=== PATIENT | male | born 1930 | race Caucasian/White ===

== ENCOUNTER 2016-12-25 07:35 | Day surgery (SDC) | payer OTHER ==
[2016-12-25] MEDS ORDERED: ceFAZolin 2 GM/DEXTROSE 100 ML IV ONE (07:38)
[2016-12-25] MEDS ORDERED: BACITRACIN IRRIGATION/NS 50,000 UNITS/1,000 ML BTL IRR ONE (07:38)
[2016-12-25] MEDS ORDERED: DIAZEPAM 5 MG TAB PO ONE (07:38)
[2016-12-25] MEDS ORDERED: diphenhydrAMINE 25 MG CAP PO ONE (07:38)
[2016-12-25] MEDS ORDERED: NS 1,000 ML IV ONE (07:38)
--- NOTE | 2016-12-25 08:15 | CPEKG ---
Heart Rate: 60 RR Interval: 1000 P-R Interval: 352 QRSD Interval: 152 QT Interval: 500 QTC Interval: 500 P [place]: 15 QRS [place]: -84 T Wave [place]: 82 EKG Severity - ABNORMAL ECG - EKG Impression: VENTRICULAR-PACED RHYTHM Electronically Signed By: Heather Bartholomew 25-Dec-2016 10:30:14
[2016-12-25 08:25] LABS: % IMMATURE GRANULYOCYTES 0.8 % (0.0-1.1); ABSOLUTE IMMATURE GRANULOCYTES 0.06 10^3/uL (0.00-0.10); ADD DIFF? NO; ADD MORPH? NO; ADD SCAN? NO; ATYPICAL LYMPHOCYTE FLAG 10 (0-99); FRAGMENT RBC FLAG 0 (0-99); HEMATOCRIT 41.3 % (40.0-51.0); HEMOGLOBIN 14.7 g/dL (13.7-17.5); LEFT SHIFT FLG 0 (0-99); LIPEMIA HEMOLYSIS FLAG 90 (0-99); MEAN CELL HEMOGLOBIN 36.8 pg (27.9-34.1); MEAN CELL HEMOGLOBIN CONCENTR. 35.6 g/dL (32.4-36.7); MEAN CELL VOLUME 103.5 fL (81.5-99.8); MEAN PLATELET VOLUME 10.7 fL (8.7-11.7); PLATELET CLUMPS FLAG 20 (0-99); PLATELET COUNT 254 10^3/uL (150-400); RED BLOOD CELL COUNT 3.99 10^6/uL (4.40-6.38); RED CELL DISTRIBUTION WIDTH 12.4 % (11.5-15.2)
[2016-12-25 08:35] LABS: INR 1.05 (0.83-1.16); PROTIME(PATIENT) 13.6 SEC (12.0-15.0)
[2016-12-25 08:36] LABS: ALANINE AMINOTRANSFERASE 34 IU/L (21-72); ALBUMIN 3.6 g/dL (3.5-5.0); ALKALINE PHOSPHATASE 131 IU/L (38-126); ANION GAP 11 mEq/L (8-16); APTT 24.7 SEC (23.0-38.0); ASPARTATE AMINOTRANSFERASE 27 IU/L (17-59); BILIRUBIN,TOTAL 1.4 mg/dL (0.1-1.4); CALCIUM 9.2 mg/dL (8.5-10.4); CARBON DIOXIDE 24 mEq/l (22-31); CHLORIDE 105 mEq/L (97-110); CREATININE 1.2 mg/dL (0.7-1.3); GLOMERULAR FILTRATION RATE 57; GLUCOSE 99 mg/dL (70-100); POTASSIUM 4.3 mEq/L (3.5-5.2); SODIUM 140 mEq/L (134-144); TOTAL PROTEIN 6.3 g/dL (6.3-8.2)
--- NOTE | 2016-12-25 09:11 | PDHPUP ---
History & Physical Update H&P update statement: This history and physical update is based on an assessment of the patient which was completed after admission or registration (within 24 hours), but prior to the surgery/procedure. H&P update: H&P reviewed & patient examined, no change in patient's condition since H&P completed
--- NOTE | 2016-12-25 09:12 | PDPROPOC ---
Sedation Plan of Care Sedation Plan of Care: vital signs stable, mental status noted, patient educated of risks, benefits, alternatives, patient can tolerate sedation ASA Classification: ASA 2 Mallampati Score: Class 1 332 Rule: 332
[2016-12-25] MEDS ORDERED: LIDOCAINE 1% 300 MG/30 ML SDV ONE (09:28)
[2016-12-25] MEDS ORDERED: fentaNYL 100 MCG/2 ML INJ ONE (09:28)
[2016-12-25] MEDS ORDERED: MIDAZOLAM 2 MG/2 ML VIAL ONE ×2 (09:28)
[2016-12-25] MEDS ORDERED: BUPIVACAINE 0.5% 30 ML SDV ONE (09:29)
[2016-12-25] MEDS ORDERED: LIDO/EPI 1% **for epidural** 30 ML SDV ONE (09:29)
--- NOTE | 2016-12-25 11:51 | CPIP ---
[f rep st] INVASIVE CARDIAC PROCEDURE DATE OF PROCEDURE: 12/25/2016 PROCEDURE PERFORMED: Pacemaker generator change. INDICATIONS: The patient is 86 years old. He has a history of a single-chamber pacemaker that was implanted initially on April 14, 2008. He has a history of complete heart block. His current de vice is at elective replacement indicators. TECHNIQUE: Following informed consent, the patient was brought in a fasting state to the cardiac ca theterization laboratory. The right groin and left chest were prepped and draped in usual sterile f ashion. 2% lidocaine was infiltrated into the skin overlying the right femoral vein. Using the mod ified Seldinger technique, access was gained to the femoral vein and a 6-[place] SafeSheath was place d. Using this SafeSheath, we placed a balloon tipped temporary pacemaker into the right ventricular apex. This temporary pacemaker was tested with excellent capture and sensing. This was programmed to a backup of 40. At this point, the patient's left chest was infiltrated with 2% lidocaine. Usi ng a #10 blade, an incision was made overlying the previously placed device. Using blunt and sharp dissection, the pacemaker capsule was identified and opened sharply. The device was then delivered from the pocket. The lead was disconnected from the existing device. The pocket was irrigated with antibiotic-containing solution and the existing lead affixed to the new generator according to manu facturer guidelines. The device was then placed back into the pocket and tested wirelessly. The po cket was then closed initially with 2 layers of interrupted suture using 2-0 and 3-0 Vicryl and keila lly running STRATAFIX for the skin. Steri-Strips and a dry dressing were applied. At this point, u nder fluoroscopy the temporary pacemaker was removed. COMPLICATIONS: None DEVICE INFORMATION: The newly placed pacemaker is a [employer] Jennifer 8 SRT, reference number [id number], serial number [id number]. The existing lead is a Medtronic 4076 lead, serial number [id number], impl anted April 14, 2008 with a capture of 0.6 V at 0.4 msec and a lead impedance of 437 ohms. R wav es were not tested. DISPOSITION: The patient will be recovered in the CVC and discharged home later today. /[id number]/[facility]
--- NOTE | 2016-12-25 13:26 | CPEKG ---
Heart Rate: 61 RR Interval: 984 P-R Interval: 210 QRSD Interval: 156 QT Interval: 512 QTC Interval: 516 P [place]: 0 QRS [place]: -82 T Wave [place]: 90 EKG Severity - ABNORMAL ECG - EKG Impression: VENTRICULAR-PACED COMPLEXES . UNDERLYING SINUS RHYTHM WITH NO APPARENT ATRIAL EKG Impression: SENSING. Electronically Signed By: Heather Bartholomew 25-Dec-2016 18:03:10
== END 2016-12-25 15:00 | disposition home or self-care (01) ==
LOC: FCATH 07:35
PROVIDERS: ATTEND Internal Medicine Cardiovascular Disease
DX: Z45.010 Encounter for checking and testing of cardiac pacemaker pulse generator [battery] (principal); I49.5 Sick sinus syndrome; I25.10 Atherosclerotic heart disease of native coronary artery without angina pectoris; E78.00 Pure hypercholesterolemia, unspecified; M10.9 Gout, unspecified; Z87.891 Personal history of nicotine dependence; Z95.5 Presence of coronary angioplasty implant and graft
CPT/HCPCS: C1786; J0690; J2250; J3010